=== PATIENT | female | born 1935 | race Caucasian/White ===

== ENCOUNTER → 2018-09-02 19:41 | Outpatient (REF) | payer MEDICARE, SELFPAY ==
[2018-09-02 20:27] LABS: Alanine Aminotransferase 22 IU/L (9-52); Albumin 3.9 g/dL (3.5-5.0); Albumin Globulin Ratio 1.3 (1.0-2.8); Alkaline Phosphatase 63 U/L (38-126); Aspartate Aminotransferase 22 IU/L (14-36); BUN Creatinine Ratio 21.1 (6-22); Bilirubin Total 0.4 mg/dL (0.2-1.3); Blood Urea Nitrogen 19 mg/dL (7-17); Calcium 9.5 mg/dL (8.4-10.2); Carbon Dioxide 29 mmol/L (22-32); Chloride 104 mmol/L (98-107); Cholesterol 206 mg/dL (140-199); Estimated Glomerular Filt Rate > 60.0 mL/min (>60); Globulin 3.1 g/dL (1.7-4.1); Glucose 88 mg/dL (80-110); HDL Cholesterol 36 mg/dL (40-60); HEMOLYSIS < 15 (0-50); LDL Cholesterol Calculated 146 mg/dL (<100); Potassium 5.1 mmol/L (3.4-5.1); Sodium 141 mmol/L (137-145); Triglycerides 121 mg/dL (35-150)
[2018-09-02 20:28] LABS: Add Manual Diff / Slide Review NO; Basophils Absolute Auto 100 /uL (0-100); Basophils Percent Auto 1.4 % (0-2); Eosinophils Absolute Auto 200 /uL (0-450); Eosinophils Percent Auto 2.9 % (2-4); Hematocrit 40.5 % (36-46); Hemoglobin 13.2 g/dL (12.0-16.0); Lymphocytes Absolute Auto 3100 /uL (1100-4500); Lymphocytes Percent Auto 38.5 % (25-40); Mean Corpuscular HGB Conc 32.5 % (30-36); Mean Corpuscular Hemoglobin 29.6 PG (26-34); Monocytes Absolute Auto 600 /uL (0-900); Monocytes Percent Auto 7.3 % (3-14); Neutrophils Absolute Auto 4000 /uL (1500-7000); Neutrophils Percent Auto 49.9 % (50-75); Platelet Count 386 X10^3/uL (150-400); Red Blood Cell Count 4.45 X10^6/uL (4.0-5.2); Red Cell Distribution Width 13.7 % (11.6-14.8); White Blood Cell Count 7.9 X10^3/uL (4.5-11.0)
[2018-09-02 20:55] LABS: Thyroid Stimulating Hormone 1.56 uIU/mL (0.47-4.68)
== END ==
LOC: LAB 19:41
PROVIDERS: PCP Family Medicine Geriatric Medicine; Visit Provider Physician Assistant Medical
DX: E03.9 Hypothyroidism, unspecified (principal); Z00.00 Encounter for general adult medical examination without abnormal findings; E78.5 Hyperlipidemia, unspecified
CPT/HCPCS: 36415; 80053; 80061; 84443; 85025

== ENCOUNTER → 2018-10-10 14:40 | Outpatient (CLI) | payer MEDICARE, SELFPAY ==
--- NOTE | 2018-10-10 14:43 | DI.RAD.S_ITS ---
PROCEDURE: XR LUMBAR SPINE MIN 4V INDICATIONS: Lumbar spondylosis TECHNIQUE: 5 views of the lumbar spine were acquired. COMPARISON: None. FINDINGS: Bones: 5 nonrib-bearing vertebrae are present. There is grade 1 anterolisthesis of L4 and L5. No vertebral body compression fractures. Degenerative endplate changes and bilateral facet arthrosis at L4-5 is seen. No suspicious bony lesions. Soft tissues: Overlying bowel gas pattern is normal. No suspicious soft tissue calcifications. Oblique images: No definite pars defects. IMPRESSION: Grade 1 anterolisthesis of L4 and L5. No compression fracture. No definite pars interarticularis defects. Degenerative disc disease in lower lumbar spine. Dictated by: Glen Loredo M.D. on 10/10/2018 at 15:35 Approved by: Glen Loredo M.D. on 10/10/2018 at 15:36
--- NOTE | 2018-10-10 14:43 | DI.RAD.S_ITS ---
PROCEDURE: XR CERVICAL SPINE 4V OR 5V INDICATIONS: Cervical spondylosis TECHNIQUE: 5 views of the cervical spine acquired. COMPARISON: None. FINDINGS: Bones: There is straightening of normal cervical lordosis. Degenerative disc disease throughout cervical spine is seen more prominent at C4-5, C5-6 and C6-7 levels. Minimal anterolisthesis of C3 on C4 and C2 on C3 is noted. Oblique images demonstrate bilateral neuroforaminal narrowing at C5-6 level. Soft tissues: No prevertebral soft tissue swelling. IMPRESSION: Degenerative disc disease also are more prominent in mid to lower cervical spine with bilateral neuroforaminal narrowing at C5-6 level. No acute compression fracture. Minimal anterolisthesis of C3 on C4 and C2 on C3 Dictated by: Glen Loredo M.D. on 10/10/2018 at 15:33 Approved by: Glen Loredo M.D. on 10/10/2018 at 15:34
== END ==
PROVIDERS: PCP Family Medicine Geriatric Medicine; Visit Provider Physical Medicine & Rehabilitation
DX: M47.812 Spondylosis without myelopathy or radiculopathy, cervical region (principal); M50.321 Other cervical disc degeneration at C4-C5 level; M48.02 Spinal stenosis, cervical region; M47.816 Spondylosis without myelopathy or radiculopathy, lumbar region; M51.36 Other intervertebral disc degeneration, lumbar region; M43.16 Spondylolisthesis, lumbar region; M48.062 Spinal stenosis, lumbar region with neurogenic claudication
CPT/HCPCS: 72050; 72110; 99214

== ENCOUNTER → 2018-10-17 18:42 | Outpatient (REF) | payer MEDICARE, SELFPAY ==
[2018-10-17 19:22] LABS: Add Manual Diff / Slide Review NO; Basophils Absolute Auto 300 /uL (0-100); Basophils Percent Auto 2.9 % (0-2); Eosinophils Absolute Auto 0 /uL (0-450); Eosinophils Percent Auto 0.2 % (2-4); Hematocrit 39.2 % (36-46); Hemoglobin 13.1 g/dL (12.0-16.0); Lymphocytes Absolute Auto 2000 /uL (1100-4500); Lymphocytes Percent Auto 22.5 % (25-40); Mean Corpuscular HGB Conc 33.4 % (30-36); Mean Corpuscular Hemoglobin 29.6 PG (26-34); Mean Corpuscular Volume 88.7 fL (80-100); Monocytes Absolute Auto 400 /uL (0-900); Neutrophils Absolute Auto 6100 /uL (1500-7000); Neutrophils Percent Auto 69.4 % (50-75); Platelet Count 347 X10^3/uL (150-400); Red Blood Cell Count 4.42 X10^6/uL (4.0-5.2); Red Cell Distribution Width 14.4 % (11.6-14.8); White Blood Cell Count 8.8 X10^3/uL (4.5-11.0)
[2018-10-17 19:28] LABS: Alanine Aminotransferase 23 IU/L (9-52); Albumin 4.1 g/dL (3.5-5.0); Albumin Globulin Ratio 1.4 (1.0-2.8); Alkaline Phosphatase 74 U/L (38-126); Aspartate Aminotransferase 24 IU/L (14-36); BUN Creatinine Ratio 18.8 (6-22); Bilirubin Total 0.6 mg/dL (0.2-1.3); Blood Urea Nitrogen 15 mg/dL (7-17); C-Reactive Protein Quant 2.5 mg/dL (<1.0); Calcium 9.4 mg/dL (8.4-10.2); Carbon Dioxide 25 mmol/L (22-32); Chloride 100 mmol/L (98-107); Estimated Glomerular Filt Rate > 60.0 mL/min (>60); Glucose 121 mg/dL (80-110); HEMOLYSIS < 15 (0-50); Potassium 4.1 mmol/L (3.4-5.1); Sodium 136 mmol/L (137-145); Total Protein 7.1 g/dL (6.3-8.2)
[2018-10-17 20:10] LABS: Erythrocyte Sedimentation Rate 38 MM/HR (0-20)
[2018-10-18 22:13] LABS: Thyroid Stimulating Hormone 0.83 uIU/mL (0.47-4.68)
== END ==
LOC: LAB 18:42
PROVIDERS: PCP Family Medicine Geriatric Medicine; Visit Provider Family Medicine Geriatric Medicine
DX: E03.9 Hypothyroidism, unspecified (principal); R53.1 Weakness; M79.10 Myalgia, unspecified site
CPT/HCPCS: 36415; 80053; 84443; 85025; 85651; 86140

== ENCOUNTER 2018-12-11 10:03 | Outpatient (CLI) | payer MEDICARE, SELFPAY ==
[2018-12-11] VITALS (8 sets, daily range): BP systolic 126–158; BP diastolic 63–77; PULSE 75–87; RESP 16; O2SAT 93–98
--- NOTE | 2018-12-11 10:05 | DI.RAD.S_ITS ---
PROCEDURE: PAIN C/T INTERLAMINAR INJECT INDICATIONS: SPINAL STENOSIS FINDINGS: Fluoroscopic spot filming was performed to verify placement of spinal needles at the dorsal midline C6-C7 level(s), as labeled on the films. Appropriate location(s) of the needle tip(s) was confirmed by injection of iodinated contrast. IMPRESSION: Successful needle tip localization at the dorsal midline for epidural steroid injection low cervical spine. Dictated by: Femi Grey M.D. on 12/11/2018 at 11:48 Approved by: Femi Grey M.D. on 12/11/2018 at 11:55
[2018-12-11] MEDS: fentaNYL 100 MCG/2 ML INJ 50 MCG IV (11:10)
[2018-12-11] MEDS: MIDAZOLAM 5 MG/5 ML VIAL IV (11:10)
[2018-12-11] MEDS: IOPAMIDOL 15 ML VIAL 3 ML INJ (11:22)
--- NOTE | 2018-12-11 11:25 | P.PCN_ITS ---
Procedures Date/Time Date of procedure: 12/11/18 Time of procedure: 11:24 General Procedure description: PREOP DIAGNOSIS 1. CERVICAL STENOSIS, 2. CERVICAL HNP WITH UPPER EXTREMITY RADICULAR FEATURES, POST OP DIAGNOSIS 1. CERVICAL STENOSIS, 2. CERVICAL HNP WITH UPPER EXTREMITY RADICULAR FEATURES, PROCEDURES 1. FLUORSCOPICALLY GUIDED CONTRAST CONTROLLED INTERLAMINAR EPIDURAL STEROID INJECTION - C6/7 TL TAMI PHYSICIAN: Ari Farfan DO INDICATIONS Carole is referred by Dr. Contreras for treatment of Cervical HNP with Upper Extremity Paresthesias. FINDINGS Cervical Stenosis due to disc deterioration and nerve root irritation and nerve root irritation DESCRIPTION OF PROCEDURE Fluoroscopically guided, contrast-controlled C6/7 translaminar epidural steroid injection with conscious sedation. Following denial of allergy and review of potential side effects and complications, including, but not necessarily limited to, infection, allergic reaction, local tissue breakdown, temporary as well as permanent nerve injury, stroke, paralysis, and possible , the patient indicated that patient understood and agreed to proceed. An informed consent document was signed by the patient, witnessed by a nurse, and placed in the patient's chart. Additionally, other treatment options including modalities, medications, and physical therapy were reviewed with the patient. After review of previous anaesthesic history and IV conscious sedation the patient was deemed safe to proceed with todays procedure with IV conscious sedation as ASA class II designation. Safety time-out was performed to confirm patient ID, procedure to be performed and site of procedure. IV sedation was accomplished with a combination of 2mg of Versed and 50mcg of Fentanyl administered by the RN after DO order, titrated to patient comfort during the course of the procedure while the patient remained responsive to all verbal commands. In the prone position, following sterile prep and drape of the cervical region, the C6/7 translaminar space was identified fluoroscopically. The skin was anesthetized via a 25-gauge 1.5-inch needle with 1% lidocaine solution. At this point, a 25-gauge, 2.5-inch short bevel spinal needle was atraumatically intr oduced and advanced under fluoroscopic guidance into epidural space at the C6/7 translaminar space. Depth was confirmed on lateral view. Radiological data, including multiple fluoroscopic views of the cervical spine, reveal a spinal needle at the C6/7 translaminar space. Lateral views then show placement of the needle in the epidural space. Subsequent views show contrast material flowing superiorly and inferiorly in the epidural space. DSA fluoroscopy with live contrast injection, once again, confirmed no vascular or intrathecal uptake. At this point, using loss of resistance technique with saline and air, the epidural space was entered. Following negative aspiration, injection of approximately 1.5 cc of Isovue-200 with live fluoroscopy in the AP view confirmed epidural flow in the epidural space without vascular or intrathecal uptake observed. Subsequently, a test dose of 1 cc of 1% lidocaine solution was injected and patient was observed for two minutes without signs or symptoms of complications, including abdominal pain, shortness of breath, bilateral upper or lower extremity weakness, nausea and vomiting, prior to steroid injection. At this point, 3cc or 30mg of dexamethasone was then injected without incident. The patient tolerated the procedure well without signs or symptoms of complications prior to being transferred to the recovery area for further monitoring, The patient was then transferred to the recovery area where they were observed for an appropriate period of time after the injection. The patient reported a VAS score of 6 prior to the procedure and a post-procedure VAS of 0. Total Fluoroscopy Time: 37.0 seconds Total Conscious Time: 24min POST OP INSTRUCTIONS The patient was provided a Pain Log to continue to record their response to the target-specific procedure prior to follow-up visit with the referring provider. Additionally, specific post-injection care instructions and a contact number to our office were provided if concerns arise regarding possible complications associated with the procedure are suspected. Ari Farfan DO Complications: none
--- NOTE | 2018-12-11 11:33 | PC.NURSE ---
Pt finished procedure at 1114, tolerated it well. Able to get off the table and into the wheelchair without problems. Pt awake and alert, transferred via wheelchair to pre procedure room for continued monitoring with Sally TELLES.
[2018-12-11] MEDS: DEXAMETHASONE 10 MG/ML VIAL 30 MG INJ (11:35)
== END 2018-12-11 12:01 | disposition home or self-care (01) ==
LOC: RAD 10:05
PROVIDERS: PCP Family Medicine Geriatric Medicine; Visit Provider Physical Medicine & Rehabilitation
DX: M48.02 Spinal stenosis, cervical region (principal); M50.123 Cervical disc disorder at C6-C7 level with radiculopathy
CPT/HCPCS: 62321; 99152; J1100; J2250; J3010

== ENCOUNTER 2019-03-31 09:11 | Day surgery (SDC) | payer MEDICARE, SELFPAY ==
[2019-03-26 09:58] VITALS: BMI 22.3
[2019-03-31] VITALS (16 sets, daily range): BP systolic 131–164; BP diastolic 57–82; PULSE 61–91; RESP 12–18; TEMP 35.9–36.9; O2SAT 92–100; BMI 21.7
--- NOTE | 2019-03-31 | DI.RAD.S_ITS ---
PROCEDURE: XR CERVICAL SPINE 2V OR 3V INDICATIONS: C4/5,6/7 ACDF TECHNIQUE: 2 view(s) of the cervical spine were acquired. COMPARISON: [facility], CR, XR CERVICAL SPINE 4V OR 5V, 10/10/2018, 14:50. FINDINGS: Bones: There is digital acquisition imaging represents the immediate postoperative appearance after anterior discectomy at C4-5 and C5-6 Soft tissues: No prevertebral soft tissue swelling. IMPRESSION: C4-5 and C5-6 interbody disc prosthesis devices have been placed. No similar devices are seen at the C6-7 level despite the level being mentioned in the indication section above. Dictated by: Femi Grey M.D. on 03/31/2019 at 13:42 Approved by: Femi Grey M.D. on 03/31/2019 at 13:46
--- NOTE | 2019-03-31 10:17 | PM.PREOP ---
Pre-operative Note Interval Note History & Physical reviewed/Exam performed by Physician: Yes Changes to H&P: No
[2019-03-31] MEDS: LACTATED RINGERS 1,000 ML 42 ML IV (10:28)
[2019-03-31] MEDS: CEFAZOLIN 2 GM/100 ML FROZ.PIGGY IV (11:05)
[2019-03-31] MEDS: THROMBIN (RECOMBINANT) 5,000 UNIT VIAL 5000 UNIT TOP (11:28)
[2019-03-31] MEDS: SODIUM CHLORIDE 0.9% 1,000 ML, GENTAMICIN 80 MG IRR (11:30)
--- NOTE | 2019-03-31 11:35 | SUR.OPER ---
Supine on padded OR bed, head on pillow, arms padded and tucked at side, legs uncrossed, safety belt at thigh, tape over blanket over lower legs .gel doughnut under head roll under shoulders.
--- NOTE | 2019-03-31 12:37 | P.OP_ITS ---
Operative Date/Time/Diagnoses Date of procedure: 03/31/19 Time of procedure: 12:37 Pre-op diagnosis: Cervical stenosis with myelopathy Post-op diagnosis: same Procedure & Clinicians Procedure: C4-5, C5-6 anterior diskectomy an artificial disc replacement Use of microscope Same procedure as scheduled: Yes Indications: [age] year old female with cervical stenosis and myelopathy. They had failed conservative management and requested operative intervention. Risks and benefits of surgery were discussed and appropriate consents were o btained. Surgeon: Maikol Paiz Strip Mill Operator: Elis Mauro Anesthesia Type: General Operative Notes Findings: None Closure Type: primary Specimen(s): none sent Prosthetic devices, grafts, tissues, transplants, or devices: [place] Mobi-C Estimated Blood Loss (mL): 5 Blood products transfused: none Procedure in detail: Patient was brought to the operating room and intubated on the table. A time-out was performed. Preoperative antibiotics were given. The neck was prepped and draped in the standard sterile fashion. Using a skin fold, we made a 3 cm oblique incision on the left side. We used Bovie to go through the platysma and then did a standard anterolateral blunt dissection down to the precervical fascia. Fascia was nicked and elevated up. A marker was placed and x-ray was taken for localization. We then subperiosteally elevated up the longus colli muscles. Self-retaining retractors were placed. [place] pins were placed under x-ray guidance to be parallel to the endplates. We then brought in the microscope. A scalpel used to perform an annulotomy. We then used a combination of pituitaries and curettes and Kerrison to perform a complete anterior diskectomy at C4-5. We took down the PLL and used Kerrison to remove any posterior disc material and osteophytes. At the end we could from the nerve hook cephalad caudally and out the foramen and everything was opened. We distracted open with the parallel jail manager. We then used the horseshoes for sizing. We then used the trials. We then inserted a 15 x 13 x 5 mm size Mobi-C artificial disc replacement under fluoroscopic guidance for positioning. The traction was released and x-ray was checked again. The self-retaining retractors and [place] pins were moved down to the C5-6 level. Again a complete anterior discectomy was performed at C5-6. This was with a scalpel, pituitary, curettes, and Kerrisons. We took down the PLL and removed remaining disc tissue and posterior osteophytes. At the end we could run a nerve hook throughout and everything was open. We trialed and placed another 15 x 13 x 5 mm size Mobi-C artificial disc replacement under fluoroscopic guidance for positioning. She had loss of the superior endplate of C6 anteriorly and we impacted the bottom half of the disc replacement posteriorly to get as much coverage as possible. The traction was released and final x-rays were taken. The wound was irrigated. There was no bleeding. The carotid was beating nicely. The platysma was closed. The superficial was closed. The skin was closed. A sterile dressing was placed. They were then extubated and brought to recovery room with no complications. Complications: none Post-operative Condition: stable Disposition: PACU Plan for aftercare: Inpatient. Up with PT.
[2019-03-31] MEDS: HYDROMORPHONE 2 MG INJ 0.5 MG IV ×2 (13:09→13:16)
[2019-03-31] MEDS: LACTATED RINGERS 1,000 ML 125 ML IV ×2 (15:00→21:36)
--- NOTE | 2019-03-31 15:36 | PC.NURSE ---
1400 Pt arrived from PACU via bed, Pt is sleepy, able to respond verbally, O x4. O2 2Lnc on, sats 96%. 1430 SCDS on , LR at 125ml/hr infusing R hand IV site. Pt w/soft collar on, ant neck drsg dry/intact. Pt able to move all extremities, strong senior counsel. Pt requests to be able to just sleep for awhile. VS wnl. Pt remains Ox4 1515 Pt cont to sleep, arouses easily w/verbal stim. Noted, Pt slightly [place]. Report to oncoming shift.
--- NOTE | 2019-03-31 16:38 | PC.NURSE ---
Pt resting quietly at this time. Arouses easily. Lungs clear, SpO2 94% 2L Pt oriented to room and call system. Call light w/in reach, bed alarm on for pt safety.
[2019-03-31] MEDS: ONDANSETRON 4 MG/2 ML INJ IV (18:22)
[2019-03-31] MEDS: CEFAZOLIN 1 GM/50 ML FROZ.PIGGY IV (18:22)
[2019-03-31] MEDS: HYDROMORPHONE 0.5 MG INJ IV ×2 (18:23→21:36)
[2019-03-31] MEDS: METOCLOPRAMIDE 10 MG/2 ML INJ IV (21:35)
[2019-03-31] MEDS: AMLODIPINE 2.5 MG TABLET PO (21:50)
--- NOTE | 2019-03-31 22:59 | PC.NURSE ---
Evening note: Carole has mostly slept tonight, she wakes easily, oriented x 3 and situation. Reports nausea any time she moved or repositioned in bed. Zofran given earlier. Tolerating ice chips and sips of water. PO meds held tonight except for Amlodipine as her SBP is in the high 140's tonight. Other VS stable. IVF infusing to right wrist. Patient incontinent of urine in bed, transferred to [facility] where voided another 150 ml. Full bed change done. Pt had dry heaves while sitting on BSC, I gave Reglan and she reports relief from nausea since. IV Dilaudid given for anterior neck pain 12/22. She reports sore throat and swallowing glitches, no cough or choking observed or heard. Fall precautions in place tonight, alarm active. Pt oriented to call button & calling appropriately.
[2019-04-01 00:40] VITALS: BP 136/58; PULSE 98; RESP 17; TEMP 36.8; O2SAT 96
[2019-04-01] MEDS: CEFAZOLIN 1 GM/50 ML FROZ.PIGGY IV (03:05)
[2019-04-01 04:00] VITALS: BP 137/61; PULSE 92; RESP 18; TEMP 36.7; O2SAT 94
[2019-04-01] MEDS: HYDROMORPHONE 0.5 MG INJ IV (04:14)
[2019-04-01] MEDS: LACTATED RINGERS 1,000 ML 125 ML IV (05:39)
[2019-04-01] MEDS: LEVOTHYROXINE 50 MCG TABLET 125 MCG PO (06:50)
--- NOTE | 2019-04-01 06:57 | PC.NURSE ---
Pt VSS, lung sounds clear bilaterally. Pt denied nausea on this shift however was still slow for PO intake. Pt remains on LR at 125ml/hr this morning until PO intake improves. Pt had some lower O2 sats this night at 90%, Pt remains on O2 at 1 liter. Pt has had pain 5-6/10 and is on IV dilaudid 0.5 Q3. Pt's dressing is clean/dry/intact.
[2019-04-01 08:00] VITALS: BP 138/52; PULSE 84; RESP 14; TEMP 37.1; O2SAT 97
--- NOTE | 2019-04-01 08:09 | PM.PNPO.1 ---
Subjective Subjective Date Patient Seen: 04/01/19 Time Patient Seen: 08:09 Interval history: She is doing very well. Arms feel fine. Neck is somewhat achy. Exam Vital Signs (past 8 hours): - 04/01/19 00:40 04/01/19 04:00 Temperature 98.3 F 98.0 F Pulse Rate 98 H 92 H Respiratory Rate 17 18 Blood Pressure 136/58 L 137/61 Pulse Oximetry 96 94 Oxygen Delivery Method Nasal Cannula Oxygen Flow Rate 0 Const Orientation: alert and oriented x3 Back/Spine/Pelvis Other: CDI. 5/5 motor both upper extremities Assessment & Plan Post-op Postoperative Procedures: Procedures Operation Date: 03/31/19 10:15 Actual Procedures Side Surgeon p C4-5 & C5-6 anterior discectomy and artificial disc replacement Maikol Paiz MD she is doing very well. Discharged home after physical therapy. Quality VTE Deep Vein Thrombosis/Pulmonary Embolism Present on Admission: No
[2019-04-01] MEDS: DOCUSATE 100 MG CAPSULE PO (08:34)
[2019-04-01] MEDS: ONDANSETRON 4 MG/2 ML INJ IV (09:20)
--- NOTE | 2019-04-01 10:55 | PT.IIE ---
Current Diagnoses Spinal stenosis, cervical region (03/31/19) Other cervical disc degeneration, unspecified cervical region (03/31/19) Strain of muscle, fascia and tendon at neck level, initial encounter (03/31/19) Surgery Performed Operation Date: 03/31/19 10:15 Actual Procedures p C4-5 & C5-6 anterior discectomy and artificial disc replacement - Maikol Paiz MD Surgical History (Last Updated 03/26/19 @ 10:14 by Keyana Kuhn RN) Hx of bilateral cataract extraction (Acute) Medical History (Last Updated 03/26/19 @ 10:14 by Keyana Kuhn RN) Arthritis (Acute) Easy bruisability (Acute) H/O: hysterectomy (Acute) Hearing impaired (Acute) HLD (hyperlipidemia) (Acute) HTN (hypertension) (Acute) Hypothyroid (Acute) Left wrist fracture (Acute ~2016) Retinal vein occlusion (Acute 03/24/19) Physical Therapy Inpatient Evaluation/Re-Eval M1 PT/OT-IP Prior Functional Status Start: 04/01/19 08:00 Freq: NEEDED Status: Active Protocol: Document 04/01/19 09:10 (Rec: 04/01/19 10:54 [email or web address]) Medical Review Prior Functional Status Medical History Reviewed Yes Diet/Fluid Consistency Regular Communication No deficits noted. Able to make needs known Mobility and Gait Independent ambulator at home and community without using AD . Stated has significant weakness on RUE for few months before she had a cortisone injection. Activities of Daily Living and IADL's Independent for all ADLs and IADLs. Able to drive as well. Social History Household Members family,none Living Arrangements Apartment/Condo Number of Floors (Floors) One Floor Number of Stairs To Enter/Railing? no [place]AD[place] Home Environment Standard Height Toilet,Tub/ Shower Home Equipment Shower Seat with Backrest Employment Status Retired Additional Social History Comment Pt lives alone in [place] but dtr lives above her who will be able to assist as needed 04/02. Pt will have her other dtr Fabi and son Toby to stay with her for at least a week to assist as well. M2 PT-IP Current Condition Start: 04/01/19 08:00 Freq: NEEDED Status: Active Protocol: Document 04/01/19 09:10 (Rec: 04/01/19 10:54 [email or web address]) Physical Therapy Current Condition Current Condition Evaluation Date 04/01/19 Treatment Diagnosis C4-6 Ant diskectomy and Artificial disc replacement Onset Date 03/31/19 Precautions Cervical Spine Precautions Soft Collar for Comfort,Rigid Collar,No Heavy Lifting,Log Roll Weight Bearing Status Weight Bearing Status Weight Bear as Tolerated M3 PT-IP Subjective Start: 04/01/19 08:00 Freq: NEEDED Status: Active Protocol: Document 04/01/19 09:10 (Rec: 04/01/19 10:54 [email or web address]) Subjective Physical Therapy Visit Type Type Initial Evaluation Visit Start Time 09:10 Visit Stop Time 09:40 Total Visit Minutes 30 Notes Per RN, pt has c/o difficulty swallowing early this am. Pt's dtr Bernadette and son Toby attended IE. Co-tx with OT. Number of NATURAL HISTORY COLLECTIONS CURATOR Visits 0 Physical Therapy Visit Comments Patient Comments I got to chair this morning without a walker. Patient Goals I want to go home today. Therapy Pain Assessment Pain When Pain Assessed At Rest Pain Present Pain Present Pain Reported Location Posterior Neck Intensity 5 Scale Used Numeric (1 - 10) Description Acute Pain Management Techniques Modification of Treatment, Timing of Activity with Medications M4 PT-IP Mobility and Gait Start: 04/01/19 08:00 Freq: NEEDED Status: Active Protocol: Document 04/01/19 09:10 (Rec: 04/01/19 10:54 [email or web address]) PT-Bed Mobility Assessment Rolling Type of Rolling Roll to Left Level of Assist Standby Assistance Supine to Sit Supine to Sit Contact Guard Assistance, Minimal Assistance,1 Person Assistance Sit to Supine Sit to Supine Standby Assistance Scooting Scooting to Edge of Bed Standby Assistance Scooting Up and Down in Bed Standby Assistance PT-Transfer Assessment Sit to and From Stand Sit to and from Stand Standby Assistance,Use of Upper Extremities Equipment Transfer Assistive Device None,Gait Belt Orthotic/Prosthetic Devices or Brace: Yes Transfers Transfer Destination Bed,Chair,Toilet Transfer Technique Stand Step Pivot Transfer Ability Level of Assist Standby Assistance,Use of Upper Extremities Comments Mobility Comments BP pre and post IE= 130s/70s. Pt was in bed upon assessment. Instructed pt about log roll and supine to sit method. 1st trial pt needed min A from sidelying to sit but CGA for 2nd time who is able to push off through her R wrist and L elbow. Pt's O2 did drop from 95% to 84-85% after sitting up , but able to recover within a minute. She then stood up and amb to sink counter first for self care, followed by bathroom for toileting. She was able to wipe in squat position as well. She was somewhat wobbly for the first 5 mins during mobility with noticeable lateral weight shift to L. But after amb 150 with SBA, pt's balance and step length progressively improved and stayed steady for the last 50 ft. Pt returned to her room after and instructed her to flora and doff cervical collar. She then went back to bedside chair with SBA. Gait Assessment Gait Gait Assistance Required: Standby Assistance Distance (Feet) 150 Able to Maintain Weight Bearing Status Yes During Gait Assistive Devices Assistive Device None,Gait Belt Gait Deviations General Gait Pattern Antalgic,Decreased Stride Length,Decreased Feet Clearance,Lateral Trunk Lean Factors Limiting Gait Function Factors Limiting Gait Function Decreased Activity Tolerance, Decreased Strength,Limited Range of Motion,Pain,Poor Balance Comments Gait Comments see mobility comments. PT-Balance Assessment Sitting Balance and Reactions Static Sitting Balance Ability Normal Dynamic Sitting Balance Ability Normal Standing Balance and Reactions Static Standing Balance Ability Good Dynamic Standing Balance Ability Good Device Used none M5 PT-IP Objective Assessments Start: 04/01/19 08:00 Freq: NEEDED Status: Active Protocol: Document 04/01/19 09:10 (Rec: 04/01/19 10:54 [email or web address]) Orientation Orientation/Cognition Level of Alertness Alert Orientation Name,Age,Birthday,Month,Date, Year,Day of Week,Place, Situation Language Function Ability No Deficits Noted Safety Awareness Understands Safety Issues Memory Description No Deficits Noted Gross Range of Motion Upper Extremity ROM Assessment Within Functional Limits Lower Extremity ROM Assessment Within Functional Limits Strength Upper Extremity Strength Assessment Right Impaired Shoulder 4-/5 Elbow 4-/5 Wrist 4-/5 Hand 4-/5 Lower Extremity Strength Assessment Within Functional Limits Coordination Assessment Gross Coordination Gross Coordination WNL Sensation Assessment Sensation Gross Sensation WNL Light Touch Intact Proprioception (Position) Intact Muscle Tone Muscle Tone WNL Yes M6 PT-IP Treatment Start: 04/01/19 08:00 Freq: NEEDED Status: Active Protocol: Document 04/01/19 09:10 (Rec: 04/01/19 10:54 [email or web address]) Physical Therapy Treatment Education Education Provided Precautions,Weight Bearing Status,Post-Op Packet,Safety Brace Education Donning,Louise,Patient, Caregiver Other Treatments Other Treatment Performed cervical collar M7 PT-IP Assessment and Plan Start: 04/01/19 08:00 Freq: NEEDED Status: Active Protocol: Document 04/01/19 09:10 HH (Rec: 04/01/19 10:54 [email or web address]) PT Summary Assessment and Plan Potential Rehabilitation Potential Excellent Status of Condition at Evaluation Stable Summary Impairments Pain,ROM,Strength,Balance,Bed Mobility,Transfers,Gait, Activity Tolerance Progress Towards Goals Safe For Discharge Assessment Summary Pt is a low complexity who is s/p C4-6 Ant diskectomy and Artificial disc replacement yesterday. Upon assessment, pt did very well for log roll, bed mobility, transfer and amb with SBA w/o FWW. She did appear wobbly for the first 5- 8 minutes of mobility with decreased SpO2 to 90s, but her balance and gait speed significantly improved and SpO2 maintained at 97% after ambulation. This might be due to prolonged bed bound after sx but she denies any discomfort and dizziness. Pt did c/o she has difficulties in swallowing earlier and discussed with KOKI Cho to let pt to have another meal prior to d/c to ensure her swallowing ability is intact. Pt has a very supportive family that will assist her 24 /7 as needed so pt will be safe to d/c home at this point . Frequency of Treatment Frequency Of Treatment Discharge Recommendations To Nursing Amount of Assist Needed Standby Assistance Discharge Recommendations PT Discharge Recommendations Home with 24/7 Assist
[2019-04-01] MEDS: hydrOXYzine pamoate 25 MG CAPSULE PO (11:17)
[2019-04-01] MEDS: HYDROCODONE/ACET 5/325 TABLET 1 TAB PO (11:17)
[2019-04-01 12:00] VITALS: BP 139/68; PULSE 83; RESP 14; TEMP 36.8; O2SAT 98
--- NOTE | 2019-04-01 13:14 | OT.IP.EVAL ---
Current Diagnoses Spinal stenosis, cervical region (03/31/19) Other cervical disc degeneration, unspecified cervical region (03/31/19) Strain of muscle, fascia and tendon at neck level, initial encounter (03/31/19) Surgery Performed Operation Date: 03/31/19 10:15 Actual Procedures p C4-5 & C5-6 anterior discectomy and artificial disc replacement - Maikol Paiz MD Past Medical History (Last Updated 03/26/19 @ 10:14 by Keyana Kuhn RN) Arthritis (Acute) Easy bruisability (Acute) H/O: hysterectomy (Acute) Hearing impaired (Acute) HLD (hyperlipidemia) (Acute) HTN (hypertension) (Acute) Hypothyroid (Acute) Left wrist fracture (Acute ~2016) Retinal vein occlusion (Acute 03/24/19) Surgical History (Last Updated 03/26/19 @ 10:14 by Keyana Kuhn RN) Hx of bilateral cataract extraction (Acute) Occupational Therapy Inpatient Evaluation/Re-Eval M1 PT/OT-IP Prior Functional Status Start: 04/01/19 12:24 Freq: NEEDED Status: Active Protocol: Document 04/01/19 12:24 [facility] (Rec: 04/01/19 13:14 [facility] [id number]) Medical Review Prior Functional Status Medical History Reviewed Yes Diet/Fluid Consistency Regular Communication No deficits noted. Able to make needs known Mobility and Gait Independent ambulator at home and community without using AD . Stated has significant weakness on RUE for few months before she had a cortisone injection. Activities of Daily Living and IADL's Independent for all ADLs and IADLs, however having more trouble with putting on her jacket anf bra due to decreased use of RUE. Able to drive as well. 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 Social History Household Members family,none Living Arrangements Apartment/Condo Number of Floors (Floors) One Floor Number of Stairs To Enter/Railing? no THADDEUS Home Environment Standard Height Toilet,Tub/ Shower Home Equipment Shower Seat with Backrest Employment Status Retired Additional Social History Comment Pt lives alone in Saturday but dtr lives above her who will be able to assist as needed 04/02. Pt will have her other dtr Fabi and son Toby to stay with her for at least a week to assist as well. M2 OT-IP Current Condition Start: 04/01/19 12:24 Freq: Status: Active Protocol: Document 04/01/19 12:24 [facility] (Rec: 04/01/19 13:14 [facility] [id number]) Occupational Therapy Current Condition Current Condition Evaluation Date 04/01/19 Treatment Diagnosis C4-5, C5-6 ant discectomy and artifical replacement Diagnosis Onset Date 03/31/19 Post Operative Precautions Cervical Spine Precautions Soft Collar for Comfort,No Heavy Lifting,Log Roll M3 OT- IP Subjective and Pain Start: 04/01/19 12:24 Freq: Status: Active Protocol: Document 04/01/19 12:24 [facility] (Rec: 04/01/19 13:14 [facility] [id number]) OT- Subjective Occupational Therapy Visit Type Type Initial Evaluation Visit Start Time 09:05 Visit Stop Time 09:45 Total Visit Minutes 40 Occupational Therapy Visit Comments Patient Comments Pt willing to get up and pt's daughter, son , and PT also present for OT eval. Patient/Caregiver Goals To go home. OT Pain Assessment Pain When Pain Assessed At Rest Pain Present Pain Present Pain Reported Location Posterior Neck Intensity 6 Scale Used Numeric (1 - 10) M4 OT- IP ADL's Start: 04/01/19 12:24 Freq: Status: Active Protocol: Document 04/01/19 12:24 [facility] (Rec: 04/01/19 13:14 [facility] [id number]) OT CXY-Tome-Sluidtc Comments OT Self-Feeding Comments Pt states vomited her breakfast, nursing aware. Educated pt to eat softer foods, to be sure sitting upright while eating and to take smaller bites and sips at this time. OT ADL-Grooming Comments OT Grooming Comments Pt able to wash her hands while standing in front of the sink. Educated pt to either sip into a cup or bend at her hips versus head to sip/ Pt refusing to brush her teeth at this time and states, I will just do it at home. OT ADL-Oral Care Comments Oral Care Comments Pt refused. OT ADL-Dressing General Eval Lower Body Dressing Ability Independent Comments OT Dressing Comments Pt able to flora/doff socks while sitting at the edge of the recliner. Educated pt to be able to flora /doff soft collar and for care of collar. OT ADL-Toileting General Evaluation Toileting Ability Standby Assistance Devices Toileting Assistive Devices Grab Bars Comments OT Toileting Comments Pt SBA for all toileting needs and pt needing use of grab bar to sit and stand from toilet. Pt states has a pedestal sink that she can use to help stand and sit from the toilet at home. OT ADL-Bathing Comments OT Bathing Comments Pt refuses to do here at this time. Pt has a claw foot tub and uses a study chair to hold onto to get into the tub and sits on a stool. Pt's daughter able to assist a home . M5 OT- IP IADL's Start: 04/01/19 12:24 Freq: Status: Active Protocol: Document 04/01/19 12:24 [facility] (Rec: 04/01/19 13:14 [facility] [id number]) OT-Instrumental Activities of Daily Living Home Safety Awareness Home Safety Comments Pt's daughter in son to be home with her for one week to assist for all needs. Educated for family to assist initially at needed and then have pt try to return to doing all of her IADL needs and to make modifications as needed. Medication Management Medication Management Comments Pt states completely independent with all ADL and IADl needs prior to surgery. M6 OT- IP Functional Cognition Start: 04/01/19 12:24 Freq: Status: Active Protocol: Document 04/01/19 12:24 [facility] (Rec: 04/01/19 13:14 [facility] [id number]) Cognitive Factors Limiting Selfcare Function Cognitive Ability Level of Alertness Alert Patient Orientation Name,Age,Birthday,Month,Date, Year,Day of Week,Place, Situation Attention Span Ability Capable of Focused Attention, Capable of Sustained Attention Ability to Follow Commands Able to Follow Multi-Step Commands Memory Description No Deficits Noted Cognitive Comments Cognitive Assessment Comments No deficits noted, appears to be at baseline. Pt very hard of hearing that at times affects her comprehension. OT- Vision and Hearing OT- Hearing Assessment OT- Hearing Assessment Hearing Impaired,Use of Hearing Aids OT- Vision Assessment Visual Acuity Glasses All The Time M7 OT- IP Mobility and Balance Start: 04/01/19 12:24 Freq: Status: Active Protocol: Document 04/01/19 12:24 [facility] (Rec: 04/01/19 13:14 [facility] [id number]) OT- Bed Mobility Assessment Rolling Type of Rolling Roll to Left Supine to Sit Supine to Sit Assist Standby Assistance,Minimal Assistance,1 Person Assistance Sit to Supine Sit to Supine Assist Standby Assistance Scooting Scooting to Edge of Bed Standby Assistance OT-Transfer Assessment Sit to and From Stand Sit to and from Stand Standby Assistance Transfers Transfer Ability Standby Assistance,Contact Guard Assistance Technique Transfer Destination Bed,Chair,Toilet Transfer Technique Stand Step Pivot Devices Transfer Assistive Devices Gait Belt Comments Mobility Comments Pt a little unsteady on her feet initially and after walking more steady. Pt would need CGA for uneven surfaces at this time. 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 OT-Muscle Tone Assessment Muscle Tone WNL Yes M9 OT- IP Assessment and Plan Start: 04/01/19 12:24 Freq: Status: Active Protocol: Document 04/01/19 12:24 [facility] (Rec: 04/01/19 13:14 [facility] [id number]) OT Summary Assessment and Plan Potential Rehabilitation Potential Excellent Analytic Complexity at Evaluation Low Summary OT Impairments Balance,Functional Mobility, Toileting,Bathing Progress Towards Goals Progressing Toward Goals Assessment Summary Pt low complexity and main barrier has been not been able to eat as vomited her breakfast, decreased dynamic balance, otherwise doing well and needing mainly CGA to SBA for all needs. Pt has supportive family who can assist pt for all needs when she goes home. Therefore, home with assist when stable. Goals Dressing Goal Standby Assistance Toileting Goal Independent Bathing Goal Standby Assistance Patient/Caregiver Education Goal Demonstrate Post-Op Precautions,Caregiver Independent Assisting Patient Days to Meet Goals 1 Frequency of Treatment Frequency Of Treatment Once a Day Treatment Plan OT Treatment Plan ADL Training,Functional Mobility,Patient/Family Education,Discharge Planning Other Treatment Recommendations and Next If pt still here in morning, Treatment Focus touch base with pt for showering and finalize all OT needs. Discharge Recommendations OT Discharge Recommendations Home with Assistance
--- NOTE | 2019-04-01 15:33 | CM.DANOTE ---
DCP/Assessment: Reviewed chart. Patient is a 84yr old female admitted to [facility] for spine surgery with Dr. Paiz. PCP is Dr. Contreras. Primary payor is 1)Medicare 2)[facility]. Met with patient explained CM/SW role. Patient hopes to d/c home today. Patient reports that she is completely I with all ADL's. Patient resides with family on [place]. Patient will need priority boarding pass. RN notified. No identified d/c planning needs at this time. P: Home when medically stable. PEARL Blanchard
== END 2019-04-01 13:05 | disposition home or self-care (01) ==
LOC: AC 04-01 10:41 → OR 04-01 13:32
PROVIDERS: PCP Family Medicine Geriatric Medicine; Visit Provider Orthopaedic Surgery
PROC: (CPT 22856; principal; 2019-03-31 10:15)
DX: M48.02 Spinal stenosis, cervical region (principal); M47.12 Other spondylosis with myelopathy, cervical region; S16.1XXA Strain of muscle, fascia and tendon at neck level, initial encounter; M19.91 Primary osteoarthritis, unspecified site; E03.9 Hypothyroidism, unspecified; I10 Essential (primary) hypertension; E78.5 Hyperlipidemia, unspecified
CPT/HCPCS: 22856; 22858; 72040; 76000; 94760; 97161; 97165; 97530; 97535; C1776; J0330; J0690; J1100; J1170; J2405; J2704; J2765; J3010